=== PATIENT | male | born 1960 | race Caucasian/White ===

== ENCOUNTER 2021-11-27 17:43 | Inpatient (IN) | payer OTHER ==
[2021-11-27] MEDS ORDERED: Sodium Chloride 0.9% 10 ML Syringe FLUSH PRN (17:58)
[2021-11-27] MEDS: Dextrose 5%-Lactated Ringers 1,000 ML IV SCH (19:03)
[2021-11-27 19:44] LABS: ESTIMATED GFR 76 mL/min (>60)
[2021-11-27] MEDS ORDERED: Potassium Chloride 20 MEQ in Premix Bag 1 BAG IV ONE (21:39)
[2021-11-27] MEDS ORDERED: Albuterol 0.083% 2.5 MG/3 ML Neb Soln NEB PRN (21:39)
[2021-11-27] MEDS ORDERED: Pantoprazole 40 MG Vial IV SCH (21:39)
[2021-11-27] MEDS ORDERED: Morphine 2 MG/ML SYRINGE IVPUSH PRN (21:39)
[2021-11-27] MEDS ORDERED: Lidocaine 1% PF 2 ML SDV IV ONE (22:03)
[2021-11-28] MEDS: Dextrose 5%-Lactated Ringers 1,000 ML IV SCH ×4 (01:49→22:01)
[2021-11-28] MEDS: Lisinopril 20 MG Tab PO SCH (08:36)
[2021-11-28] MEDS: Hydrochlorothiazide 25 MG Tab PO SCH (08:36)
[2021-11-28] MEDS: Pantoprazole 40 MG Vial IV SCH ×2 (09:57→21:27)
[2021-11-29 04:49] LABS: ESTIMATED GFR 85 mL/min (>60)
[2021-11-29] MEDS: Dextrose 5%-Lactated Ringers 1,000 ML IV SCH ×3 (05:14→21:34)
[2021-11-29] MEDS ORDERED: Ketamine 500 MG/5 ML MDV IV SCH ×3 (07:30→11:00)
[2021-11-29] MEDS: Potassium Chloride 20 MEQ, Lidocaine 1% 2 ML in Sodium Chloride 0.9% 100 ML IV SCH ×3 (08:41→13:48)
[2021-11-29] MEDS: Lisinopril 20 MG Tab PO SCH (08:42)
[2021-11-29] MEDS: Hydrochlorothiazide 25 MG Tab PO SCH (08:42)
[2021-11-29] MEDS: Pantoprazole 40 MG Vial IV SCH ×2 (10:55→21:25)
[2021-11-29] MEDS: Magnesium Sulfate/Water 2 GM/50 ML BAG IV SCH ×3 (10:55→21:25)
[2021-11-29] MEDS ORDERED: cefOXitin 2 GM in Sodium Chloride 0.9% 50 ML IV ONE (11:00)
[2021-11-29] MEDS ORDERED: Ketamine 24 MG in Sodium Chloride 0.9% 19.76 ML IV SCH (11:00)
[2021-11-29] MEDS ORDERED: Non-Formulary Medication 1 Each PO PRN (19:24)
[2021-11-30 03:50] VITALS: PULSE 59
[2021-11-30 05:02] LABS: ESTIMATED GFR 85 mL/min (>60)
[2021-11-30] MEDS: Magnesium Sulfate/Water 2 GM/50 ML BAG IV SCH (05:05)
[2021-11-30] MEDS: Lisinopril 20 MG Tab PO SCH (08:45)
[2021-11-30] MEDS: Hydrochlorothiazide 25 MG Tab PO SCH (08:45)
[2021-11-30 10:17] VITALS: BP 134/75
== END 2021-11-30 11:10 | disposition home or self-care (01) | DRG 394 ==
LOC: JP.ED 17:43 → JP.MS 20:49
PROVIDERS: ADMIT Hospitalist; ATTEND Surgery
PROC: 0D9670Z Drainage of Stomach with Drainage Device, Via Natural or Artificial Opening (ICD-10-PCS; principal; 2021-11-29)
DX: K43.6 Other and unspecified ventral hernia with obstruction, without gangrene (principal); Z68.42 Body mass index [BMI] 45.0-49.9, adult; C78.7 Secondary malignant neoplasm of liver and intrahepatic bile duct; E87.6 Hypokalemia; I10 Essential (primary) hypertension; G47.33 Obstructive sleep apnea (adult) (pediatric); M10.9 Gout, unspecified; E66.01 Morbid (severe) obesity due to excess calories; K43.0 Incisional hernia with obstruction, without gangrene; Z85.038 Personal history of other malignant neoplasm of large intestine; Z79.899 Other long term (current) drug therapy; Z87.891 Personal history of nicotine dependence; Z79.82 Long term (current) use of aspirin
CPT/HCPCS: 36415; 74018; 74018-26; 74019; 74019-26; 74022; 74022-26; 74177; 80048; 80053; 82565; 82803; 82947; 83605; 83690; 83735; 83880; 84100; 85025; 85027; 85610; 85730; 99222; 99284; 99285; A9270-GY; C9113; J3475; J3480; J3490; J7121